=== PATIENT | female | born 1975 | race Caucasian/White ===

== ENCOUNTER 2017-05-07 18:29 | Emergency (ER) | payer SELFPAY ==
[~2017-05-07] VITALS: Ht 154.9 cm; Wt 81.6 kg
--- NOTE | 2017-05-07 18:31 | PHYS DOC ---
Past Medical History Past Medical History: No Pertinent History Past Surgical History: Cholecystectomy, , Tonsillectomy Alcohol Use: None Drug Use: None Adult General Chief Complaint Chief Complaint: DENTAL PROBLEM HPI HPI Patient is a 42 year old female who presents with pain on the left lower side. She states it started around 2:00 this afternoon. She took 2 Tylenol and thought she had some Vicodin and took one of those except they've been switched out with just Tylenol. She denies any fevers chills nausea vomiting, trismus, or changes in her voice. Review of Systems Review of Systems Constitutional: Denies fever or chills [] Eyes: Denies change in visual acuity, redness, or eye pain [] HENT: Denies nasal congestion or sore throat [] Respiratory: Denies cough or shortness of breath [] Cardiovascular: No additional information not addressed in HPI [] GI: Denies abdominal pain, nausea, vomiting, bloody stools or diarrhea [] : Denies dysuria or hematuria [] Musculoskeletal: Denies back pain or joint pain [] Integument: Denies rash or skin lesions [] Neurologic: Denies headache, focal weakness or sensory changes [] Endocrine: Denies polyuria or polydipsia [] Allergies Allergies Allergies Coded Allergies Type Severity Reaction Last Updated Verified No Known Drug Allergies 02/08/14 No Physical Exam Physical Exam Constitutional: Well developed, well nourished, no acute distress, non-toxic appearance. [] HENT: Normocephalic, atraumatic, bilateral external ears normal, oropharynx moist, no oral exudates, nose normal. No trismus, no Storm angina, tender to palpation over the left lower jaw without any obvious signs of abscess or deformity. Eyes: PERRLA, EOMI, conjunctiva normal, no discharge. [] Neck: Normal range of motion, no tenderness, supple, no stridor. [] Cardiovascular:Heart rate regular rhythm, no murmur [] Lungs & Thorax: Bilateral breath sounds clear to auscultation [] Abdomen: Bowel sounds normal, soft, no tenderness, no masses, no pulsatile masses. [] Skin: Warm, dry, no erythema, no rash. [] Back: No tenderness, no CVA tenderness. [] Extremities: No tenderness, no cyanosis, no clubbing, ROM intact, no edema. [] Neurologic: Alert and oriented X 3, normal motor function, normal sensory function, no focal deficits noted. [] Psychologic: Affect normal, judgement normal, mood normal. [] Current Patient Data Vital Signs Vital Signs Date Time Temp Pulse Resp B/P (MAP) Pulse Ox O2 Delivery O2 Flow Rate FiO2 05/07/17 18:42 98.4 78 16 98 Room Air 98.4 EKG EKG [] Radiology/Procedures Radiology/Procedures [] Impressions: Dental pain Course & Med Decision Making Course & Med Decision Making Pertinent Labs and Imaging studies reviewed. (See chart for details) She doesn't have any Storm angina or trismus. We'll discharge with Pen-Vee K and oxycodone. She is to follow-up with dentist within the next week. Return precautions given. She is agreeable plan and being discharged in stable condition. Dragon Disclaimer Dragon Disclaimer This electronic medical record was generated, in whole or in part, using a voice recognition dictation system. Departure Departure Impression: Primary Impression: Pain, dental Disposition: 01 HOME, SELF-CARE Condition: STABLE Referrals: AMELIA GARCIA MD (PCP) Patient Instructions: Dental Caries Additional Instructions: You were seen and night for your dental pain. Your being discharged with oxycodone which is a narcotic pain medicine. Please use it with caution as it can impair judgment and make you sleepy. Do not drink or drive or taking this medicine. You will also need to take antibiotic for the next 7 days. Please follow-up with a dentist within the next week. Return ER if you have any trouble swallowing, changes in her voice, troubles breathing, high fevers, uncontrolled pain or other concerns Scripts Penicillin V Potassium (PENICILLIN V POTASSIUM) 500 Mg Tablet 1 TAB PO QID for 7 Days, #28 TAB Prov: ANNA GARAY MD 05/07/17 Oxycodone Hcl (OXYCODONE HCL) 5 Mg Capsule 1 CAP PO QID Y for PAIN, #20 CAP Prov: ANNA GARAY MD 05/07/17 ANNA GARAY MD May 07, 2017 18:31
[2017-05-07 18:42] VITALS: BP 180/103
[2017-05-07] MEDS ORDERED: OXYC5CAP PO (18:50)
[2017-05-07] MEDS ORDERED: PENI500T PO (18:50)
== END 2017-05-07 19:01 | disposition home or self-care (01) ==
LOC: ER 18:29
DX: K08.89 Other specified disorders of teeth and supporting structures (principal); Z90.49 Acquired absence of other specified parts of digestive tract
CPT/HCPCS: 99283